=== PATIENT | female | born 1940 | race Caucasian/White ===

== ENCOUNTER 2020-11-17 01:11 | Inpatient (IN) | payer OTHER ==
[~2020-11-17] VITALS: Ht 154.9 cm; Wt 66.4 kg
[2020-11-17] MEDS ORDERED: ATEN50TA41 PO (01:59)
[2020-11-17] MEDS ORDERED: FLUT1BLS11 INH (01:59)
[2020-11-17] MEDS ORDERED: LORA-445 PO (01:59)
[2020-11-17] MEDS ORDERED: LOVA40TA2 PO (01:59)
[2020-11-17] MEDS ORDERED: MORPHINE SULFATE 4 MG/ML, 1ML ONE (02:15)
--- NOTE | 2020-11-17 02:29 | NUR ---
PT MEDICATED FOR PAIN PER EMAR. PT WAS PLACED ON INTERMITTENT LOW SUCTION PER ERP. PT DENIES N/V AT THIS TIME. FAMILY AT BEDSIDE
[2020-11-17] MEDS ORDERED: MORPHINE SULFATE 4 MG/ML, 1ML IVPush ONE (03:00)
[2020-11-17] MEDS ORDERED: MORPHINE SULFATE 4 MG/ML, 1ML IVPush PRN (03:00)
[2020-11-17 03:58] VITALS: BP 102/62
[2020-11-17] MEDS ORDERED: LABETALOL 5MG/ML, 20ML IVPush PRN (05:00)
[2020-11-17] MEDS: LACTATED RINGERS 1,000 ML IV SCH ×2 (05:20→19:16)
[2020-11-17 06:22] VITALS: BP 101/66
[2020-11-17 13:52] VITALS: BP 117/70
[2020-11-17] MEDS: morphine SULFATE 10 MG/ML, 1ML IVPush PRN (18:12)
[2020-11-17 18:45] VITALS: BP 115/64
[2020-11-18 01:24] VITALS: BP 134/77
[2020-11-18] MEDS: morphine SULFATE 10 MG/ML, 1ML IVPush PRN (03:17)
[2020-11-18 05:49] LABS: BASOPHILS % (AUTO) 1 % (0-1); EOSINOPHILS % (AUTO) 0 % (1-7); LYMPHOCYTES % (AUTO) 24 % (22-44); MEAN CORPUSCULAR HEMOGLOBIN 30.2 pg (27.0-34.8); MEAN CORPUSCULAR HGB CONC 32.8 g/dL (32.4-35.8); MEAN PLATELET VOLUME 6.7 fL (7.4-10.4); MONOCYTES % (AUTO) 5 % (2-9); NEUTROPHILS % (AUTO) 70 % (42-75); PLATELET COUNT 275 x10^3/uL (130-400); RED BLOOD COUNT 4.95 x10^6/uL (3.82-5.3); RED CELL DISTRIBUTION WIDTH 13.6 % (9.6-15.2)
[2020-11-18 05:52] LABS: ANION GAP 14 mmol/L (5-15); CALCIUM 9.5 mg/dL (8.5-10.1); CHLORIDE 107 mmol/L (98-107); CREATININE 0.56 mg/dL (0.55-1.02)
[2020-11-18 07:08] VITALS: BP 100/66
[2020-11-18 07:45] VITALS: BP 89/61
[2020-11-18 08:07] VITALS: BP 92/61
[2020-11-18] MEDS: POTASSIUM CHLORIDE 20 MEQ in LACTATED RINGERS 1,000 ML IV SCH ×3 (09:39→19:08)
[2020-11-18 13:11] VITALS: BP 131/76
[2020-11-18] MEDS ORDERED: IBAN150T15 PO (13:16)
[2020-11-18] MEDS ORDERED: MONT10TA6 PO (13:16)
[2020-11-18] MEDS ORDERED: FAMO40TA61 PO (13:16)
[2020-11-18] MEDS: LORazepam 2 MG/ML, 1ML IVPush SCH (15:30)
[2020-11-18] MEDS ORDERED: CHLORHEXIDINE 15 ML UDC ONE (15:33)
[2020-11-18] MEDS ORDERED: PROPOFOL 50 ML ONE (15:41)
[2020-11-18] MEDS ORDERED: CHLORHEXIDINE 15 ML UDC PO ONE (16:00)
[2020-11-18] MEDS ORDERED: FENTANYL PF 100 MCG/2ML ONE (16:41)
[2020-11-18] MEDS ORDERED: metroNIDAZOLE 5 MG/ML INJ 500 MG in SYRINGE 1 EA IV SCH (16:42)
[2020-11-18] MEDS: FENTANYL PF 100 MCG/2ML IV PRN ×2 (16:50→16:59)
[2020-11-18] MEDS ORDERED: DEXTROSE 5% IV SCH (17:00)
[2020-11-18] MEDS ORDERED: CEFEPIME 2 GM in DEXTROSE 5% 100 ML IV SCH (17:00)
[2020-11-18] MEDS ORDERED: CIPROFLOXACIN LACTATE IV SCH (17:00)
[2020-11-18 18:34] VITALS: BP 108/64
[2020-11-18] MEDS: CEFEPIME 2 GM in DEXTROSE 5% 100 ML IV SCH (19:08)
[2020-11-18] MEDS: METRONIDAZOLE PMX 500MG/100ML 100 ML IV SCH (20:53)
[2020-11-19 00:36] VITALS: BP 117/70
[2020-11-19] MEDS: POTASSIUM CHLORIDE 20 MEQ in LACTATED RINGERS 1,000 ML IV SCH ×2 (02:21→07:56)
[2020-11-19] MEDS: LORazepam 2 MG/ML, 1ML IVPush SCH (03:03)
[2020-11-19] MEDS: METRONIDAZOLE PMX 500MG/100ML 100 ML IV SCH ×3 (03:03→19:39)
[2020-11-19 04:47] LABS: BASOPHILS % (AUTO) 1 % (0-1); EOSINOPHILS % (AUTO) 1 % (1-7); LYMPHOCYTES % (AUTO) 28 % (22-44); MEAN CORPUSCULAR HEMOGLOBIN 30.2 pg (27.0-34.8); MEAN CORPUSCULAR HGB CONC 33.2 g/dL (32.4-35.8); MONOCYTES % (AUTO) 7 % (2-9); NEUTROPHILS % (AUTO) 64 % (42-75); PLATELET COUNT 214 x10^3/uL (130-400); RED BLOOD COUNT 4.21 x10^6/uL (3.82-5.3); RED CELL DISTRIBUTION WIDTH 13.5 % (9.6-15.2)
[2020-11-19 05:00] LABS: ALBUMIN 2.8 g/dL (3.4-5.0); CALCIUM 8.4 mg/dL (8.5-10.1); CHLORIDE 109 mmol/L (98-107)
[2020-11-19 05:06] LABS: ALANINE AMINOTRANSFERASE 18 U/L (12-78); ALKALINE PHOSPHATASE 72 U/L (45-117); CREATININE 0.39 mg/dL (0.55-1.02); TOTAL PROTEIN 5.8 g/dL (6.4-8.2)
[2020-11-19 05:07] LABS: ANION GAP 12 mmol/L (5-15)
[2020-11-19] MEDS: CEFEPIME 2 GM in DEXTROSE 5% 100 ML IV SCH ×2 (06:33→18:30)
[2020-11-19 07:33] VITALS: BP 146/65
[2020-11-19] MEDS ORDERED: GUAIFENESIN 100 MG/5 ML, 5ML UDC PO PRN (10:30)
[2020-11-19] MEDS ORDERED: GUAIFENESIN/DM 200-20MG, 10ML UDC PO PRN (11:30)
[2020-11-19] MEDS: MONTELUKAST 10 MG TABLET PO SCH (11:51)
[2020-11-19] MEDS: ATENOLOL 50 MG TABLET PO SCH (11:51)
[2020-11-19 13:34] VITALS: BP 135/76
[2020-11-19 18:49] VITALS: BP 149/73
[2020-11-19] MEDS: LORazepam 0.5MG TABLET PO SCH (20:33)
[2020-11-20 00:08] VITALS: BP 130/71
[2020-11-20] MEDS: SIMETHICONE 80 MG CHEW TAB PO PRN ×2 (00:46→15:30)
[2020-11-20] MEDS: METRONIDAZOLE PMX 500MG/100ML 100 ML IV SCH ×3 (03:11→22:16)
[2020-11-20 07:22] VITALS: BP 147/80
[2020-11-20] MEDS: LOVASTATIN 40 MG TABLET PO SCH ×2 (08:42→21:05)
[2020-11-20] MEDS: CEFEPIME 2 GM in DEXTROSE 5% 100 ML IV SCH ×2 (08:42→23:36)
[2020-11-20] MEDS: MONTELUKAST 10 MG TABLET PO SCH ×2 (08:42→21:05)
[2020-11-20] MEDS: PROMETHAZINE 25 MG/ML, 1ML IM PRN ×3 (08:46→21:05)
[2020-11-20] MEDS: LORazepam 0.5MG TABLET PO SCH ×2 (08:49→21:04)
[2020-11-20] MEDS: ATENOLOL 50 MG TABLET PO SCH (10:10)
[2020-11-20 13:45] VITALS: BP 155/69
[2020-11-20] MEDS ORDERED: ACETAMINOPHEN 325 MG TABLET PO PRN (17:30)
[2020-11-20] MEDS: KETOROLAC 30 MG/1 ML IVPush SCH ×2 (17:40→23:37)
[2020-11-20] MEDS ORDERED: PROCHLORPERAZINE 5 MG/ML, 2ML IM PRN (18:30)
[2020-11-20 18:49] VITALS: BP 133/76
[2020-11-21 01:13] VITALS: BP 134/78
[2020-11-21 05:51] LABS: BASOPHILS % (AUTO) 1 % (0-1); EOSINOPHILS % (AUTO) 5 % (1-7); LYMPHOCYTES % (AUTO) 44 % (22-44); MEAN CORPUSCULAR HEMOGLOBIN 30.3 pg (27.0-34.8); MEAN CORPUSCULAR HGB CONC 33.5 g/dL (32.4-35.8); MEAN PLATELET VOLUME 6.4 fL (7.4-10.4); MONOCYTES % (AUTO) 7 % (2-9); NEUTROPHILS % (AUTO) 43 % (42-75); PLATELET COUNT 225 x10^3/uL (130-400); RED BLOOD COUNT 4.37 x10^6/uL (3.82-5.3)
[2020-11-21 06:05] LABS: CHLORIDE 104 mmol/L (98-107)
[2020-11-21] MEDS: KETOROLAC 30 MG/1 ML IVPush SCH ×4 (06:10→23:29)
[2020-11-21] MEDS: METRONIDAZOLE PMX 500MG/100ML 100 ML IV SCH ×3 (06:10→22:08)
[2020-11-21 06:11] LABS: ANION GAP 7 mmol/L (5-15); CALCIUM 8.8 mg/dL (8.5-10.1); CREATININE 0.38 mg/dL (0.55-1.02)
[2020-11-21] MEDS ORDERED: POTASSIUM CHLORIDE 20 MEQ TAB.ER.PRT PO SCH (08:00)
[2020-11-21 08:14] VITALS: BP 141/68
[2020-11-21] MEDS: LORazepam 0.5MG TABLET PO SCH ×2 (09:00→21:19)
[2020-11-21] MEDS: CEFEPIME 2 GM in DEXTROSE 5% 100 ML IV SCH ×2 (09:12→21:18)
[2020-11-21] MEDS: ATENOLOL 50 MG TABLET PO SCH (09:13)
[2020-11-21] MEDS: POTASSIUM CHLORIDE 20 MEQ TAB.ER.PRT PO SCH ×2 (09:13→17:21)
[2020-11-21] MEDS: SIMETHICONE 80 MG CHEW TAB PO PRN (09:13)
[2020-11-21] MEDS: LACTOBACILLUS CHEW TABLET PO SCH ×3 (11:36→21:18)
[2020-11-21 13:54] VITALS: BP 139/74
[2020-11-21 18:29] VITALS: BP 121/74
[2020-11-21] MEDS: MONTELUKAST 10 MG TABLET PO SCH (21:18)
[2020-11-21] MEDS: LOVASTATIN 40 MG TABLET PO SCH (21:18)
[2020-11-22 01:13] VITALS: BP 130/80
[2020-11-22 05:45] LABS: BASOPHILS % (AUTO) 1 % (0-1); EOSINOPHILS % (AUTO) 5 % (1-7); LYMPHOCYTES % (AUTO) 43 % (22-44); MEAN CORPUSCULAR HEMOGLOBIN 30.6 pg (27.0-34.8); MEAN CORPUSCULAR HGB CONC 33.4 g/dL (32.4-35.8); MEAN PLATELET VOLUME 6.5 fL (7.4-10.4); MONOCYTES % (AUTO) 8 % (2-9); NEUTROPHILS % (AUTO) 44 % (42-75); PLATELET COUNT 231 x10^3/uL (130-400); RED BLOOD COUNT 4.28 x10^6/uL (3.82-5.3); RED CELL DISTRIBUTION WIDTH 12.8 % (9.6-15.2)
[2020-11-22 05:46] LABS: ANION GAP 4 mmol/L (5-15); CALCIUM 8.2 mg/dL (8.5-10.1); CHLORIDE 108 mmol/L (98-107); CREATININE 0.41 mg/dL (0.55-1.02)
[2020-11-22] MEDS: KETOROLAC 30 MG/1 ML IVPush SCH ×4 (06:07→23:26)
[2020-11-22] MEDS: METRONIDAZOLE PMX 500MG/100ML 100 ML IV SCH ×2 (06:08→15:38)
[2020-11-22 06:31] VITALS: BP 143/74
[2020-11-22] MEDS: ATENOLOL 50 MG TABLET PO SCH (08:58)
[2020-11-22] MEDS: LACTOBACILLUS CHEW TABLET PO SCH ×3 (08:58→21:46)
[2020-11-22] MEDS: CEFEPIME 2 GM in DEXTROSE 5% 100 ML IV SCH (08:58)
[2020-11-22] MEDS: LORazepam 0.5MG TABLET PO SCH ×2 (09:00→21:47)
[2020-11-22 13:31] VITALS: BP 128/68
[2020-11-22 13:58] LABS: CLOSTRIDIUM DIFFICILE ANTIGEN NEGATIVE; CLOSTRIDIUM DIFFICILE TOXIN NEGATIVE (Negative)
[2020-11-22] MEDS: CIPROFLOXACIN 500 MG TABLET PO SCH ×2 (16:45→23:26)
[2020-11-22 18:33] VITALS: BP 119/70
[2020-11-22] MEDS: LOVASTATIN 40 MG TABLET PO SCH (21:46)
[2020-11-22] MEDS: metroNIDAZOLE 500 MG TABLET PO SCH (21:46)
[2020-11-22] MEDS: MONTELUKAST 10 MG TABLET PO SCH (21:47)
[2020-11-23 00:30] VITALS: BP 142/82
[2020-11-23] MEDS: KETOROLAC 30 MG/1 ML IVPush SCH ×2 (06:12→12:13)
[2020-11-23] MEDS: metroNIDAZOLE 500 MG TABLET PO SCH ×2 (06:12→14:16)
[2020-11-23 06:33] VITALS: BP 137/77
[2020-11-23] MEDS: LORazepam 0.5MG TABLET PO SCH (09:00)
[2020-11-23] MEDS: LACTOBACILLUS CHEW TABLET PO SCH (09:49)
[2020-11-23] MEDS: CIPROFLOXACIN 500 MG TABLET PO SCH (09:50)
[2020-11-23] MEDS: ATENOLOL 50 MG TABLET PO SCH (09:50)
[2020-11-23] MEDS ORDERED: METR500T PO (11:44)
[2020-11-23] MEDS ORDERED: CIPR500T87 PO (11:44)
[2020-11-23] MEDS ORDERED: CALCIUM CARBONATE 500 MG TAB.CHEW PO PRN (12:00)
[2020-11-23] MEDS: SIMETHICONE 80 MG CHEW TAB PO PRN (14:16)
[2020-11-23] MEDS ORDERED: MONTELUKAST 10 MG TABLET PO SCH (21:00)
[2020-11-23] MEDS ORDERED: LOVASTATIN 40 MG TABLET PO SCH (21:00)
== END 2020-11-23 15:42 | disposition home or self-care (01) | DRG 394 ==
LOC: ED 02:19 → EDIP 02:22 → 3N 03:04 → 4WST 11-18 17:55 → 4NW 11-20 18:15 → DCLOUNGE 11-23 15:36
PROVIDERS: ADMIT Family Medicine; ATTEND Family Medicine
PROC: 0DBN8ZX Excision of Sigmoid Colon, Via Natural or Artificial Opening Endoscopic, Diagnostic (ICD-10-PCS; principal; 2020-11-18 15:30)
DX: K63.89 Other specified diseases of intestine (principal); F13.20 Sedative, hypnotic or anxiolytic dependence, uncomplicated; K57.32 Diverticulitis of large intestine without perforation or abscess without bleeding; K56.609 Unspecified intestinal obstruction, unspecified as to partial versus complete obstruction; E78.00 Pure hypercholesterolemia, unspecified; E78.5 Hyperlipidemia, unspecified; E87.6 Hypokalemia; F32.9 Major depressive disorder, single episode, unspecified; F41.9 Anxiety disorder, unspecified; I10 Essential (primary) hypertension; I48.0 Paroxysmal atrial fibrillation; J45.909 Unspecified asthma, uncomplicated; K52.9 Noninfective gastroenteritis and colitis, unspecified; Z20.822 Contact with and (suspected) exposure to COVID-19; Z88.2 Allergy status to sulfonamides; Z88.8 Allergy status to other drugs, medicaments and biological substances
CPT/HCPCS: 36415; 74018; 80048; 80053; 85025; 87324; 87635; 88305; 93005; 99285; G0378; J1885; J2550; J2704; J3010; J3480; J0780; J2270; J7120